=== PATIENT | female | born 1930 | race Caucasian/White ===

== ENCOUNTER 2016-10-22 11:37 | Emergency (ER) | payer MEDICARE ==
[2016-10-22] MEDS ORDERED: SODIUM CHLORIDE 0.9% 1,000 ML IV STA (12:40)
--- NOTE | 2016-10-22 12:47 | ED ---
General Adult HPI - General Chief complaint: Arrhythmia/Palpitations Stated complaint: heart flutter Time Seen by Provider: 10/22/16 12:18 Source: patient, RN notes reviewed, old records reviewed Mode of arrival: wheelchair Limitations: no limitations - History of Present Illness Initial comments: This is an 86-year-old female to the ER for evaluation. Patient presents today for evaluation of palpitations, heart racing. Patient complains of difficulty breathing, intermittent chest pains and left lower quadrant abdominal pain. Patient does have history of high blood pressure high cholesterol. Patient has multiple complaints. Has been told before her complains results of anxiety. Patient is abdominal pain. [place] right-sided facial numbness which she currently has both. The patient states palpitations and left-sided chest which started last night but are now resolved. - Related Data Home Medications Medication Instructions Recorded Confirmed Aspirin EC [Ecotrin] 325 mg PO HS 11/15/15 10/22/16 Atorvastatin [Lipitor] 20 mg PO HS 11/15/15 10/22/16 Buta/APAP/Caf/Cod [id number] 1 cap PO TID PRN 11/15/15 10/22/16 [Fioricet w/Cod [id number]] Calcium Carbonate [Calcium] 1,200 mg PO DAILY@1200 11/15/15 10/22/16 Cholecalciferol [Vitamin D3] 2,000 unit PO DAILY@1200 11/15/15 10/22/16 L.acidoph,Paracasei, B.lactis 1 cap PO DAILY 11/15/15 10/22/16 [Probiotic] Losartan Potassium [Cozaar] 100 mg PO DAILY 11/15/15 10/22/16 Meclizine [Antivert] 25 mg PO TID PRN 11/15/15 10/22/16 Multivitamins, Thera [Multivitamin] 1 tab PO DAILY@1200 11/15/15 10/22/16 Prim-3 Fatty Acids [Prim-3] 1,000 mg PO DAILY@1200 11/15/15 10/22/16 Propranolol LA [Inderal LA] 60 mg PO BID 11/15/15 10/22/16 Triamterene-Hctz 37.5-25Mg 1 cap PO DAILY 11/15/15 10/22/16 [Dyazide 37.5-25 Capsule] Ubidecarenone [Co Q-10] 300 mg PO DAILY@1200 11/15/15 10/22/16 Cyanocobalamin (Vitamin B-12) 1,000 mcg PO DAILY@1200 10/22/16 10/22/16 [Vitamin B-12] LORazepam [Ativan] 1 mg PO Q6H PRN 10/22/16 10/22/16 Allergies Allergy/AdvReac Type Severity Reaction Status Date / Time amlodipine [From Norvasc] Allergy Unknown Verified 10/22/16 12:18 dipyridamole Allergy Unknown Verified 10/22/16 12:18 [From Persantine] ezetimibe [From Zetia] Allergy Unknown Verified 10/22/16 12:18 felodipine [From Plendil] Allergy Unknown Verified 10/22/16 12:18 furosemide [From Lasix] Allergy Unknown Verified 10/22/16 12:18 gabapentin [From Neurontin] Allergy Unknown Verified 10/22/16 12:18 lisinopril [From Zestril] Allergy Unknown Verified 10/22/16 12:18 quinidine Allergy Unknown Verified 10/22/16 12:18 [From Quinidex Extentabs] simvastatin [From Zocor] Allergy Unknown Verified 10/22/16 12:18 Penicillins AdvReac Rash/Hives Verified 10/22/16 12:18 Review of Systems ROS Statement: Those systems with pertinent positive or pertinent negative responses have been documented in the HPI. ROS Other: All systems not noted in ROS Statement are negative. Past Medical History Past Medical History: Hyperlipidemia, Hypertension Additional Past Medical History / Comment(s): vertigo History of Any Multi-Drug Resistant Organisms: None Reported Past Surgical History: Appendectomy Past Psychological History: No Psychological Hx Reported Smoking Status: Never smoker Past Alcohol Use History: None Reported Past Drug Use History: None Reported General Exam Limitations: no limitations General appearance: alert, in no apparent distress Head exam: Present: atraumatic, normocephalic, normal inspection Eye exam: Present: normal appearance, PERRL, EOMI. Absent: scleral icterus, conjunctival injection, periorbital swelling ENT exam: Present: normal exam, mucous membranes moist Neck exam: Present: normal inspection. Absent: tenderness, meningismus, lymphadenopathy Respiratory exam: Present: normal lung sounds bilaterally. Absent: respiratory distress, wheezes, rales, rhonchi, stridor Cardiovascular Exam: Present: regular rate, normal rhythm, normal heart sounds. Absent: systolic murmur, diastolic murmur, rubs, gallop, clicks GI/Abdominal exam: Present: soft, normal bowel sounds. Absent: distended, tenderness, guarding, rebound, rigid Extremities exam: Present: normal inspection, full ROM, normal capillary refill. Absent: tenderness, pedal edema, joint swelling, calf tenderness Back exam: Present: normal inspection Neurological exam: Present: alert, oriented X3, CN II-XII intact Psychiatric exam: Present: normal affect, normal mood Skin exam: Present: warm, dry, intact, normal color. Absent: rash Course Vital Signs 10/22/16 10/22/16 11:58 15:22 Temperature 98.3 F Pulse Rate 69 75 Respiratory 17 16 Rate Blood Pressure 179/84 187/81 O2 Sat by Pulse 94 L 97 Oximetry EKG Findings - EKG Comments: EKG Findings:: EKG shows normal sinus rhythm of 65, VA 150, QRS 90, QTC 4:30 Medical Decision Making - Medical Decision Making 86. ER for evaluation. CT x-ray and CT and pelvis are negative. Lab work is normal EKG is normal. Patient's no distress her emergency department stay. Denies chest pain. Patient will be discharged home - Lab Data Result diagrams: 10/22/16 12:40 10/22/16 12:40 Lab Results 10/22/16 10/22/16 10/22/16 Range/Units 12:40 12:40 12:40 WBC (3.8-10.6) k/uL RBC (3.80-5.40) m/uL Hgb (11.4-16.0) gm/dL Hct (34.0-46.0) % MCV (80.0-100.0) fL MCH (25.0-35.0) pg MCHC (31.0-37.0) g/dL RDW (11.5-15.5) % Plt Count (150-450) k/uL Neutrophils % % Lymphocytes % % Monocytes % % Eosinophils % % Basophils % % Neutrophils # (1.3-7.7) k/uL Lymphocytes # (1.0-4.8) k/uL Monocytes # (0-1.0) k/uL Eosinophils # (0-0.7) k/uL Basophils # (0-0.2) k/uL PT 10.1 (9.0-12.0) sec INR 1.0 (<1.2) APTT 23.5 (22.0-30.0) sec Sodium 135 L (137-145) mmol/L Potassium 4.1 (3.5-5.1) mmol/L Chloride 98 (98-107) mmol/L Carbon Dioxide 26 (22-30) mmol/L Anion Gap 11 mmol/L BUN 21 H (7-17) mg/dL Creatinine 0.70 (0.52-1.04) mg/dL Est GFR (MDRD) Af Amer >60 (>60 ml/min/1.73 sqM) Est GFR (MDRD) Non-Af >60 (>60 ml/min/1.73 sqM) Glucose 99 (74-99) mg/dL Calcium 9.6 (8.4-10.2) mg/dL Phosphorus 3.1 (2.5-4.5) mg/dL Magnesium 1.9 (1.6-2.3) mg/dL Total Bilirubin 0.7 (0.2-1.3) mg/dL AST 31 (14-36) U/L ALT 36 (9-52) U/L Alkaline Phosphatase 96 (38-126) U/L Total Creatine Kinase 132 (30-135) U/L CK-MB (CK-2) 2.1 (0.0-2.4) ng/mL CK-MB (CK-2) Rel Index 1.6 Troponin I <0.012 (0.000-0.034) ng/mL Total Protein 6.7 (6.3-8.2) g/dL Albumin 4.3 (3.5-5.0) g/dL Amylase 65 (30-110) U/L Lipase 88 (23-300) U/L TSH 1.850 (0.465-4.680) mIU/L Free T4 1.42 (0.78-2.19) ng/dL Urine Color Urine Appearance (Clear) Urine pH (5.0-8.0) Ur Specific [place] (1.001-1.035) Urine Protein (Negative) Urine Glucose (UA) (Negative) Urine Ketones (Negative) Urine Blood (Negative) Urine Nitrite (Negative) Urine Bilirubin (Negative) Urine Urobilinogen (<2.0) mg/dL Ur Leukocyte Esterase (Negative) Urine RBC (0-5) /hpf Urine WBC (0-5) /hpf Ur Squamous Epith Cells (0-4) /hpf Urine Bacteria (None) /hpf Urine Mucus (None) /hpf 10/22/16 10/22/16 Range/Units 12:40 12:40 WBC 6.3 (3.8-10.6) k/uL RBC 4.39 (3.80-5.40) m/uL Hgb 14.1 (11.4-16.0) gm/dL Hct 40.8 (34.0-46.0) % MCV 92.7 (80.0-100.0) fL MCH 32.1 (25.0-35.0) pg MCHC 34.6 (31.0-37.0) g/dL RDW 14.5 (11.5-15.5) % Plt Count 143 L (150-450) k/uL Neutrophils % 62 % Lymphocytes % 23 % Monocytes % 8 % Eosinophils % 3 % Basophils % 1 % Neutrophils # 4.0 (1.3-7.7) k/uL Lymphocytes # 1.5 (1.0-4.8) k/uL Monocytes # 0.5 (0-1.0) k/uL Eosinophils # 0.2 (0-0.7) k/uL Basophils # 0.1 (0-0.2) k/uL PT (9.0-12.0) sec INR (<1.2) APTT (22.0-30.0) sec Sodium (137-145) mmol/L Potassium (3.5-5.1) mmol/L Chloride (98-107) mmol/L Carbon Dioxide (22-30) mmol/L Anion Gap mmol/L BUN (7-17) mg/dL Creatinine (0.52-1.04) mg/dL Est GFR (MDRD) Af Amer (>60 ml/min/1.73 sqM) Est GFR (MDRD) Non-Af (>60 ml/min/1.73 sqM) Glucose (74-99) mg/dL Calcium (8.4-10.2) mg/dL Phosphorus (2.5-4.5) mg/dL Magnesium (1.6-2.3) mg/dL Total Bilirubin (0.2-1.3) mg/dL AST (14-36) U/L ALT (9-52) U/L Alkaline Phosphatase (38-126) U/L Total Creatine Kinase (30-135) U/L CK-MB (CK-2) (0.0-2.4) ng/mL CK-MB (CK-2) Rel Index Troponin I (0.000-0.034) ng/mL Total Protein (6.3-8.2) g/dL Albumin (3.5-5.0) g/dL Amylase (30-110) U/L Lipase (23-300) U/L TSH (0.465-4.680) mIU/L Free T4 (0.78-2.19) ng/dL Urine Color Light Yellow Urine Appearance Cloudy H (Clear) Urine pH 7.5 (5.0-8.0) Ur Specific [place] 1.013 (1.001-1.035) Urine Protein Negative (Negative) Urine Glucose (UA) Negative (Negative) Urine Ketones Negative (Negative) Urine Blood Trace H (Negative) Urine Nitrite Negative (Negative) Urine Bilirubin Negative (Negative) Urine Urobilinogen <2.0 (<2.0) mg/dL Ur Leukocyte Esterase Large H (Negative) Urine RBC 9 H (0-5) /hpf Urine WBC 67 H (0-5) /hpf Ur Squamous Epith Cells 1 (0-4) /hpf Urine Bacteria Occasional H (None) /hpf Urine Mucus Rare H (None) /hpf - Radiology Data Radiology results: report reviewed (CT brain, CT abdomen and pelvis, chest x- ray negative for acute disease), image reviewed Disposition Clinical Impression: Abdominal pain, Palpitations, Anxiety, Paresthesia Disposition: HOME SELF-CARE Condition: Good Instructions: Palpitations (ED), Abdominal Pain (ED), Paresthesia (ED) Referrals: Duncan Esposito MD [Primary Care Provider] - 1-2 days
[2016-10-22 13:04] LABS: Partial Thromboplastin Time 23.5 sec (22.0-30.0); Prothrombin Time 10.1 sec (9.0-12.0)
[2016-10-22 13:11] LABS: Appearance,Urine Cloudy (Clear); Bacteria,Urine Occasional /hpf; Bilirubin,Urine Negative (Negative); Glucose,Urine (UA) Negative (Negative); Ketones,Urine Negative (Negative); Leukocyte Esterase,Urine Large (Negative); Mucus,Urine Rare /hpf; Nitrite,Urine Negative (Negative); PH, Urine 7.5 (5.0-8.0); Particle Count 13923; Protein,Urine Negative (Negative); RBC,Urine 9 /hpf (0-5); Specific Gravity,Urine 1.013 (1.001-1.035); Squamous Epithelial Cell,Urine 1 /hpf (0-4); UA Billing (MACRO vs. MICRO) MICRO; Urobilinogen,Urine <2.0 mg/dL (<2.0); WBC,Urine 67 /hpf (0-5)
[2016-10-22 13:15] LABS: Creatine Kinase 132 U/L (30-135)
[2016-10-22 13:28] LABS: Creatine Kinase MB 2.1 ng/mL (0.0-2.4); Troponin I <0.012 ng/mL (0.000-0.034)
[2016-10-22 13:35] LABS: WBC 6.3 k/uL (3.8-10.6); WBC (Perox) 6.45
[2016-10-22 13:36] LABS: CHCM 35.7; HCT 40.8 % (34.0-46.0); HDW 2.66; HGB 14.1 gm/dL (11.4-16.0); Lymphocytes % (A) 23 %; MCH 32.1 pg (25.0-35.0); MCHC 34.6 g/dL (31.0-37.0); MCV 92.7 fL (80.0-100.0); Neutrophils % (A) 62 %; RBC 4.39 m/uL (3.80-5.40); RDW 14.5 % (11.5-15.5)
[2016-10-22 13:37] LABS: Basophils # (A) 0.1 k/uL (0-0.2); Basophils % (A) 1 %; Eosinophils # (A) 0.2 k/uL (0-0.7); Eosinophils % (A) 3 %; Luc # (Auto) 0.19; Luc % (Auto) 3; Lymphocytes # (A) 1.5 k/uL (1.0-4.8); Monocytes # (A) 0.5 k/uL (0-1.0); Monocytes % (A) 8 %
[2016-10-22 14:04] LABS: ALT 36 U/L (9-52); AST 31 U/L (14-36); Alkaline Phosphatase 96 U/L (38-126); Amylase 65 U/L (30-110); Anion Gap 11 mmol/L; Blood Urea Nitrogen 21 mg/dL (7-17); Calcium 9.6 mg/dL (8.4-10.2); Carbon Dioxide 26 mmol/L (22-30); Chloride 98 mmol/L (98-107); Glucose 99 mg/dL (74-99); Magnesium 1.9 mg/dL (1.6-2.3); Non-African American GFR(MDRD) >60 (>60 ml/min/1.73 sqM); Phosphorous 3.1 mg/dL (2.5-4.5); Potassium 4.1 mmol/L (3.5-5.1); Sodium 135 mmol/L (137-145); Total Bilirubin 0.7 mg/dL (0.2-1.3); Total Protein 6.7 g/dL (6.3-8.2)
--- NOTE | 2016-10-22 14:28 | XR ---
EXAMINATION TYPE: TEMPORARY DATE OF EXAM: 10/22/2016 COMPARISON: NONE TECHNIQUE: PA and lateral views submitted. HISTORY: Irregular heartbeat FINDINGS: The lungs are clear and there is no pneumothorax, pleural effusion, or focal pneumonia. Hyperinflat ion noted. There is arthropathy of the shoulders and degenerative change of the spine. Vague density in the right upper lobe medially noted. IMPRESSION: 1. COPD with subsegmental infiltrate medial aspect right upper lobe.
--- NOTE | 2016-10-22 15:25 | CT ---
EXAMINATION TYPE: CT abdomen pelvis w con DATE OF EXAM: 10/22/2016 COMPARISON: 11/15/2015 HISTORY: Left lower quadrant pain. CT DLP: 840.70 mGycm Automated exposure control for dose reduction was used. CONTRAST: CT scan of the abdomen pelvis is performed with IV Contrast, patient injected with 100 mL of Omnipaqu e 300. FINDINGS- LUNG BASES-subpleural nodularity noted. The heart is enlarged. LIVER/GB- No gross abnormality is appreciated. PANCREAS- No gross abnormality is seen. SPLEEN- No gross abnormality is seen. ADRENALS- No gross abnormality is seen. KIDNEYS/BLADDER- no hydronephrosis or nephrolithiasis. Tiny hypodensity within the left kidney measur es less than 5 mm in may be related to tiny cyst.. BOWEL- no bowel dilatation. Small hiatal hernia noted.. LYMPH NODES- No greater than 1cm abdominal or pelvic lymph nodes are appreciated. OSSEOUS STRUCTURES-hypertrophic and degenerative changes of the spine noted. 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 IMPRESSION- 1. No definite acute process.
--- NOTE | 2016-10-22 15:26 | CT ---
EXAMINATION TYPE: CT brain wo con DATE OF EXAM: 10/22/2016 COMPARISON: NONE HISTORY: Right frontal numbness and near syncope. CT DLP: 991.10 mGycm Automated exposure control for dose reduction was used. Helical acquisition through the brain. FINDINGS: The mastoid air cells are well aerated. Minimal mucosal thickening within the maxillary sinuses. Cere bral vascular calcifications are present. Calvarium is intact. White matter low-attenuation compatibl e with demyelination is noted. There is no hydrocephalus or hemorrhage. IMPRESSION: NONSPECIFIC WHITE MATTER DEMYELINATION COULD BE DUE TO CHRONIC SMALL VESSEL ISCHEMIA. FOLLOW-UP IN DICATED, MRI MAY BE OF INCREASED SENSITIVITY.
[2016-10-22 16:50] VITALS: BP 186/79; PULSE 66; RESP 18; TEMP 98.2
== END 2016-10-22 17:18 | disposition home or self-care (01) ==
LOC: EC 11:37
DX: R00.2 Palpitations (principal); R10.32 Left lower quadrant pain; F41.9 Anxiety disorder, unspecified; R20.9 Unspecified disturbances of skin sensation; E78.5 Hyperlipidemia, unspecified; I10 Essential (primary) hypertension; Z79.82 Long term (current) use of aspirin; Z79.899 Other long term (current) drug therapy; Z88.0 Allergy status to penicillin; Z88.8 Allergy status to other drugs, medicaments and biological substances
CPT/HCPCS: 36415; 93005; 84439; 80053; 82150; 82550; 82553; 83690; 83735; 84100; 84443; 84484; 85025; 85610; 85730; 81001; 71020; 70450; 74177; 99285; 96365; 96366; J0696; Q9967

== ENCOUNTER → 2018-10-28 | Outpatient (CLI) | payer MEDICARE ==
--- NOTE | 2018-10-28 16:18 | XR ---
Abdomen HISTORY: Pain, bloating Frontal view of the abdomen on 2 images There is a scoliotic curvature convex right centered at the upper lumbar spine. Bone mineralization i s reduced, degenerative disc changes are present. Lung bases are clear. There is no evident bowel obs truction or pneumoperitoneum. Vascular calcifications are noted within the pelvis. IMPRESSION: Nonobstructive bowel gas pattern. Scoliosis and degenerative disc disease.
== END | disposition home or self-care (01) ==
LOC: RADXRMAIN 11:49
PROVIDERS: ATTEND Internal Medicine Gastroenterology
DX: R10.9 Unspecified abdominal pain (principal)
CPT/HCPCS: 74018

== ENCOUNTER → 2019-02-05 | Outpatient (CLI) | payer MEDICARE ==
[2019-02-05 12:33] LABS: Basophils # (A) 0.2 k/uL (0-0.2); Basophils % (A) 3 %; Eosinophils # (A) 0.3 k/uL (0-0.7); Eosinophils % (A) 6 %; HCT 39.1 % (34.0-46.0); HGB 13.2 gm/dL (11.4-16.0); Lymphocytes # (A) 1.4 k/uL (1.0-4.8); Lymphocytes % (A) 25 %; MCH 31.9 pg (25.0-35.0); MCHC 33.8 g/dL (31.0-37.0); MCV 94.4 fL (80.0-100.0); Mean Platelet Volume 8.4; Monocytes # (A) 0.5 k/uL (0-1.0); Monocytes % (A) 8 %; Neutrophils # (A) 3.1 k/uL (1.3-7.7); Neutrophils % (A) 55 %; Platelet Count 149 k/uL (150-450); RBC 4.14 m/uL (3.80-5.40); RDW 13.9 % (11.5-15.5); WBC 5.6 k/uL (3.8-10.6)
[2019-02-05 12:42] LABS: Albumin 4.2 g/dL (3.5-5.0); Calcium 9.4 mg/dL (8.4-10.2); Potassium 3.9 mmol/L (3.5-5.1); Total Bilirubin 0.5 mg/dL (0.2-1.3); Total Protein 6.6 g/dL (6.3-8.2)
--- NOTE | 2019-02-05 14:10 | CT ---
EXAMINATION TYPE: CT abdomen pelvis w con DATE OF EXAM: 02/05/2019 COMPARISON: 10/22/2016 HISTORY: Upper abdominal pain CT DLP: 1475 mGycm CONTRAST: CT scan of the abdomen and pelvis is performed with Oral Contrast and with IV Contrast, patient injec neptali with 80 mL of Isovue 300. FINDINGS: LUNG BASES-: No visible nodule. No infiltrate. LIVER/GB: No calcified gallstones. No space occupying hepatic lesion. Biliary tree is of normal ca liber. PANCREAS: No inflammation. No distinct mass. SPLEEN: No splenic enlargement. No lesion seen. ADRENALS: No nodule. No thickening. KIDNEYS/BLADDER: No hydronephrosis. No nephrolithiasis. No distinct renal mass. Urinary bladder g rossly unremarkable. BOWEL: Normal appendix. Normal bowel caliber. No inflammation. GENITAL ORGANS: No gross abnormality. LYMPH NODES: No greater than 1cm abdominal or pelvic lymph nodes are appreciated. AORTA: No significant abnormality. OSSEOUS STRUCTURES: No significant abnormality is seen. OTHER: No significant additional abnormality is seen. IMPRESSION: 1. No acute process to account for the patient's symptoms.
== END | disposition home or self-care (01) ==
LOC: RADCTMAIN 11:51
PROVIDERS: ATTEND Internal Medicine Gastroenterology
DX: R10.9 Unspecified abdominal pain (principal)
CPT/HCPCS: 80053; 85025; 74177; 36415; Q9967

== ENCOUNTER → 2020-07-17 | Outpatient (CLI) | payer MEDICARE ==
[2020-07-17 18:49] LABS: African American GFR (CKD) 46.4 (60.0-200.0); Anion Gap 7.1 mmol/L (4.00-12.00); BUN/Creat Ratio 25.83 Ratio (12.00-20.00); Calcium 9.6 mg/dL (8.7-10.3); Carbon Dioxide 26.9 mmol/L (21.6-31.8); Potassium 4.5 mmol/L (3.5-5.5)
== END | disposition home or self-care (01) ==
LOC: LABWHC1 10:49
PROVIDERS: ATTEND Internal Medicine Clinical Cardiac Electrophysiology
DX: I10 Essential (primary) hypertension (principal)
CPT/HCPCS: 36415; 80048

== ENCOUNTER → 2020-10-17 | Day surgery (SDC) | payer MEDICARE ==
[2020-10-11 12:51] VITALS: BMI 29.1
[~2020-10-17] MED LIST: SODIUM CHLORIDE 0.9% 500 ML 500 ML IV ONE
[2020-10-17 11:59] VITALS: BP 175/84; PULSE 72; RESP 16; TEMP 98.4
--- NOTE | 2020-10-17 20:21 | P.EPPROC ---
- EP Procedure Note Electrophysiology Procedure Note: Diagnosis Recurrent presyncope and syncope Twelve-lead EKG shows sinus rhythm normal NC narrow QRS normal ST segments normal heart rates Tilt table test per protocol for 20 minutes Baseline blood pressure 172/77 mmHg Baseline heart rate 71 beats a minute Patient was tilted upright regular 70. Blood pressure remained between 161 70 mmHg Heart rates remained in the 80s She was unable to stand any longer than 20 minutes was laid supine at the end of the procedure Impression Normal twelve-lead EKG Baseline hypertension No evidence for dysautonomia No evidence for neurocardiogenic syncope
== END ==
LOC: CATHEP 11:23
PROVIDERS: ATTEND Internal Medicine Clinical Cardiac Electrophysiology
DX: R55 Syncope and collapse (principal); I10 Essential (primary) hypertension
CPT/HCPCS: 93660